=== PATIENT | male | born 1985 | race Caucasian/White ===

== ENCOUNTER 2017-09-07 15:56 | Emergency (ER) ==
[2017-09-07 16:17] VITALS: TEMP 98.1
--- NOTE | 2017-09-07 16:34 | ED.PDOC ---
History of Present Illness - General Chief Complaint: Skin/Abrasion/Tear Stated Complaint: Pruritic rash Time Seen by Provider: 09/07/17 16:31 Source: patient Exam Limitations: no limitations - History of Present Illness Initial Comments: the patient is a 31-year-old male presenting to the emergency room secondary to folliculitis on bilateral thighs. This is been present for about a week. He has not had this problem previously. No evidence of any large abscess. No evidence of any sepsis. There are only a few other areas of folliculitis on his body that are fairly isolated. Timing/Duration: 1 week Severity: mild Improving Factors: nothing Worsening Factors: nothing Allergies/Adverse Reactions: Allergies NO KNOWN ALLERGY Allergy (Verified 09/07/17 16:20) Home Medications: Ambulatory Orders Brexpiprazole [Rexulti] 3 mg PO BEDTIME 09/07/17 Gemfibrozil 600 mg PO BID 09/07/17 Sulfa/Trimeth 800/160 (Ds) Tab [Bactrim DS Tab] 1 ea PO BID #10 tab 09/07/17 amLODIPine BESYLATE [Norvasc] 5 mg PO BEDTIME 09/07/17 traZODone HCL [Desyrel] 100 mg PO BEDTIME 09/07/17 Review of Systems - Review of Systems Constitutional: States: no symptoms reported EENTM: States: no symptoms reported Respiratory: States: no symptoms reported Cardiology: States: no symptoms reported Gastrointestinal/Abdominal: States: no symptoms reported Genitourinary: States: no symptoms reported Musculoskeletal: States: no symptoms reported Skin: States: see HPI Neurological: States: no symptoms reported Endocrine: States: no symptoms reported All other Systems: No Change from Baseline Past Medical History (General) - Patient Medical History Hx Stroke: No Hx Congestive Heart Failure: No Hx Hypertension: Yes Hx Diabetes: No Surgical History: no surgical history - Vaccination History Hx Influenza Vaccination: No Hx Pneumococcal Vaccination: No - Social History Hx Tobacco Use: No Family Medical History - Family History Father Family History: Unknown Living Status: Unknown Physical Exam - Physical Exam General Appearance: Alert, Comfortable, No apparent distress Eye Exam: bilateral normal Ears, Nose, Throat: hearing grossly normal, normal ENT inspection, normal pharynx Neck: full range of motion, supple Respiratory: lungs clear, normal breath sounds, no respiratory distress, no accessory muscle use Cardiovascular/Chest: normal peripheral pulses, no edema Peripheral Pulses: radial,right: 2+, radial,left: 2+, dorsalis pedis,right: 2+, dorsalis pedis,left: 2+ Gastrointestinal/Abdominal: non tender Rectal Exam: deferred Back Exam: no CVA tenderness, no vertebral tenderness Extremity: non-tender, normal inspection, no pedal edema, normal capillary refill Neurologic: applications scientist II-XII nml as tested, alert, normal mood/affect, oriented x 3 Skin Exam: normal color - folliculitis as per history of present illness Comments: Vital Signs - 24 hr 09/07/17 16:16 Temperature 98.1 F Pulse Rate [ 95 H Right Radial] Respiratory 20 Rate Blood Pressure 123/94 [Right Arm] O2 Sat by Pulse 98 Oximetry Progress - Progress Progress: 09/07/17 16:33 the patient's 31-year-old male presenting with folliculitis on his anterior thighs. No evidence of any deep tissue abscess. He needs to wash several times daily with an antibacterial soap such as Dial. He'll be placed on Bactrim twice a day for 5 days. ER warnings were given for any worsening. He should follow-up with his primary care doctor if this is failing to resolve. Departure - Departure Clinical Impression: Folliculitis Disposition: Discharge to Home or Self Care Condition: Fair Departure Forms: ED Discharge - Pt. Copy, Patient Portal Self Enrollment Instructions: DI for Folliculitis Diet: regular diet Activity: increase activity as tolerated Prescriptions: Sulfa/Trimeth 800/160 (Ds) Tab [Bactrim DS Tab] 1 ea PO BID #10 tab Home Medications: Ambulatory Orders Brexpiprazole [Rexulti] 3 mg PO BEDTIME 09/07/17 Gemfibrozil 600 mg PO BID 09/07/17 Sulfa/Trimeth 800/160 (Ds) Tab [Bactrim DS Tab] 1 ea PO BID #10 tab 09/07/17 amLODIPine BESYLATE [Norvasc] 5 mg PO BEDTIME 09/07/17 traZODone HCL [Desyrel] 100 mg PO BEDTIME 09/07/17 Additional Instructions: the patient's 31-year-old male presenting with folliculitis on his anterior thighs. No evidence of any deep tissue abscess. He needs to wash several times daily with an antibacterial soap such as Dial. He'll be placed on Bactrim twice a day for 5 days. ER warnings were given for any worsening. He should follow-up with his primary care doctor if this is failing to resolve. Cholesterol medication should be held while on this medication.
[2017-09-07 17:00] VITALS: BP 124/90; O2SAT 94
== END 2017-09-07 16:45 | disposition home or self-care (01) ==
LOC: ER 15:56
DX: L73.9 Follicular disorder, unspecified (principal); I10 Essential (primary) hypertension

== ENCOUNTER 2017-09-17 18:20 | Emergency (ER) | payer SELFPAY ==
[2017-09-17] MEDS ORDERED: SODIUM CHLORIDE 0.9% 1000ML 1,000 ML IVS ONE (18:47)
[2017-09-17] MEDS ORDERED: ONDANSETRON ODT 8 MG TAB SL ONE (18:47)
[2017-09-17] MEDS ORDERED: ALUM & MAG HYDROX-SIMETHICONE 30 ML, LIDOCAINE VISCOUS 2% 15 ML PO ONE ×2 (18:48)
[2017-09-17] MEDS ORDERED: LIDOCAINE HCL 2% (MOUTH-THROAT) 15 ML UD ONE (19:09)
[2017-09-17] MEDS ORDERED: ALUM & MAG HYDROX-SIMETHICONE 30 ML UD ONE (19:09)
[2017-09-17] MEDS ORDERED: CIPROFLOXACIN 500 MG TAB PO ONE (19:51)
[2017-09-17] MEDS ORDERED: KETOROLAC TROMETHAMINE INJ 30 MG/ML VIAL IM ONE (19:51)
[2017-09-17] MEDS ORDERED: traMADol HCL 50 MG TAB PO ONE (19:51)
--- NOTE | 2017-09-17 19:58 | RAD ---
EXAM DESCRIPTION: Abdomen Series CLINICAL HISTORY: 31 years Male ,ruq pain, hx gallstones COMPARISON: None. TECHNIQUE: Frontal view chest x-ray and two views of the abdomen. FINDINGS: The cardiomediastinal silhouette appears unremarkable. No consolidating infiltrates or pleural effusions. Bilateral atelectasis in the lung bases. Nonspecific bowel gas pattern without obstruction. Psoas margins are well-defined. Moderate fecal material overlies the sacrum. No free air is identified beneath the hemidiaphragms. No dilated loops of bowel to suggest obstruction. IMPRESSION: No acute plain film abnormality is identified. Electronically signed by: Michelle Euceda MD 09/17/2017 7:56 PM CDT
--- NOTE | 2017-09-17 21:32 | ED.PDOC ---
History of Present Illness - General Chief Complaint: Abdominal Pain Stated Complaint: abdominal pain Time Seen by Provider: 09/17/17 18:47 Source: patient Exam Limitations: no limitations - History of Present Illness Initial Comments: the patient's 31-year-old male presenting to the emergency room secondary to some right upper quadrant discomfort. No nausea or vomiting. No fevers. No diarrhea. He is well-hydrated. Discomfort is mild to moderate and has been present only for 2-3 hours. The patient does have a history of gallstones and has had some inflammation in the form of biliary colic from them in the past. He was advised to get his gallbladder out but has not done so. He does take gemfibrozil for hyperlipidemia.his last flareup was around 2 months ago and he had a CT scan done at that time at an outside [facility]. Timing/Duration: 1-3 hours Severity: mild Improving Factors: nothing Worsening Factors: nothing Associated Symptoms: denies symptoms Allergies/Adverse Reactions: Allergies NO KNOWN ALLERGY Allergy (Verified 09/17/17 18:35) Home Medications: Ambulatory Orders Brexpiprazole [Rexulti] 3 mg PO BEDTIME 09/07/17 Gemfibrozil 600 mg PO BID 09/07/17 Sulfa/Trimeth 800/160 (Ds) Tab [Bactrim DS Tab] 1 ea PO BID #10 tab 09/07/17 amLODIPine BESYLATE [Norvasc] 5 mg PO BEDTIME 09/07/17 traZODone HCL [Desyrel] 100 mg PO BEDTIME 09/07/17 Ciprofloxacin [Cipro] 500 mg PO BID #14 tab 09/17/17 Tramadol HCl [Ultram] 50 mg PO Q6HR PRN #30 tab 09/17/17 Review of Systems - Review of Systems Constitutional: States: no symptoms reported EENTM: States: no symptoms reported Respiratory: States: no symptoms reported Cardiology: States: no symptoms reported Gastrointestinal/Abdominal: States: see HPI Genitourinary: States: no symptoms reported Musculoskeletal: States: no symptoms reported Skin: States: no symptoms reported Neurological: States: no symptoms reported Endocrine: States: no symptoms reported All other Systems: No Change from Baseline Past Medical History (General) - Patient Medical History Hx Stroke: No Hx Congestive Heart Failure: No Hx Hypertension: Yes Hx Diabetes: No Surgical History: no surgical history - Vaccination History Hx Influenza Vaccination: No Hx Pneumococcal Vaccination: No - Social History Hx Tobacco Use: No Hx Alcohol Use: No Hx Substance Use: No Family Medical History - Family History Father Family History: Unknown Living Status: Unknown Physical Exam - Physical Exam General Appearance: Alert, Comfortable, No apparent distress Eye Exam: bilateral normal Ears, Nose, Throat: hearing grossly normal, normal ENT inspection, normal pharynx Neck: full range of motion, supple Respiratory: chest non-tender, lungs clear, normal breath sounds, no respiratory distress, no accessory muscle use Cardiovascular/Chest: normal peripheral pulses, regular rate, rhythm, no edema Peripheral Pulses: radial,right: 2+, radial,left: 2+, dorsalis pedis,right: 2+, dorsalis pedis,left: 2+ Gastrointestinal/Abdominal: soft, other - ild right upper quadrant discomfort palpation. No rebound or peritoneal signs. No palpable mass. Rectal Exam: deferred Back Exam: no CVA tenderness, no vertebral tenderness Extremity: non-tender, normal inspection, no pedal edema, no calf tenderness, normal capillary refill Neurologic: beam dyer II-XII nml as tested, no motor/sensory deficits, alert, normal mood/affect, oriented x 3 Skin Exam: normal color Comments: Vital Signs - 24 hr 09/17/17 09/17/17 09/17/17 18:28 19:29 20:27 Temperature 98.5 F Pulse Rate [ 96 H 78 72 pulse ox] Respiratory 20 18 16 Rate Blood Pressure 107/66 [Left Arm] Blood Pressure 120/71 118/73 [Right Arm] O2 Sat by Pulse 97 97 98 Oximetry 09/17/17 21:12 Temperature Pulse Rate [ 70 pulse ox] Respiratory 16 Rate Blood Pressure [Left Arm] Blood Pressure 113/78 [Right Arm] O2 Sat by Pulse 99 Oximetry Progress - Progress Progress: 09/17/17 21:32 the patient is a 31-year-old male presented to emergency room with right upper quadrant pain that is again consistent with biliary colic. He has apparently had a confirmation of bile sludge and stones on a CT scan from an outside hospital a couple of months ago. He was given IV fluids and some discomfort medications. Laboratory work is reassuring. I do not believe that it is worth the radiation exposure to repeat CT scan on the patient at this time. He does actually have a very small urinary tract infection and will be placed on ciprofloxacin for 7 days. This is largely asymptomatic. He needs to find and obtain a primary care doctor and plan on getting his gallbladder out in the near future. In the meantime he needs to be kept well hydrated. He should additionally discontinued his gemfibrozil until he gets his gallbladder out as this is likely only making his symptoms worse. ER warnings were given. The patient will be written for tramadol for as needed use. - Results/Orders Results/Orders: Laboratory Tests 09/17/17 09/17/17 18:59 19:03 WBC 5.4 RBC 4.56 L Hgb 12.8 L Hct 38.2 L MCV 83.7 MCH 28.0 MCHC 33.5 RDW 14.1 Plt Count 240 MPV 8.5 Absolute Neuts (auto) 3.20 Absolute Lymphs (auto) 1.40 Absolute Monos (auto) 0.50 Absolute Eos (auto) 0.30 Absolute Basos (auto) 0.00 Neutrophils % 59.0 Lymphocytes % 26.3 Monocytes % 8.6 Eosinophils % 5.2 H Basophils % 0.9 PT 12.4 INR 1.070 PTT (SP) 30.7 Sodium 140 Potassium 3.6 Chloride 107 Carbon Dioxide 27 Anion Gap 9.6 L BUN 14 Creatinine 1.06 BUN/Creatinine Ratio 13.2 Random Glucose 118 H Serum Osmolality 281.0 Calcium 9.2 Magnesium 1.9 Total Bilirubin 0.7 AST 29 ALT 53 Alkaline Phosphatase 50 Creatine Kinase 149 CK-MB (CK-2) 1.7 CK-MB (CK-2) % Not Reportable Troponin I < 0.02 Serum Total Protein 7.0 Albumin 4.1 Globulin 2.9 Albumin/Globulin Ratio 1.4 Amylase 26 L Lipase 22 Urine Color Yellow Urine Appearance Clear Urine pH 6.0 Ur Specific [place] >= 1.030 Urine Protein Negative Urine Glucose (UA) Negative Urine Ketones Negative Urine Blood Negative Urine Nitrite Negative Urine Bilirubin Negative Urine Urobilinogen 0.2 Ur Leukocyte Esterase Negative Urine RBC 0-1 Urine WBC 5-10 H Ur Epithelial Cells 1-3 Urine Bacteria 0 abdominal series shows no acute pathology. Departure - Departure Clinical Impression: Biliary colic symptom Disposition: Discharge to Home or Self Care Condition: Fair Departure Forms: ED Discharge - Pt. Copy, Patient Portal Self Enrollment Diet: other - low-fat diet Activity: increase activity as tolerated Prescriptions: Tramadol HCl [Ultram] 50 mg PO Q6HR PRN #30 tab PRN Reason: Moderate To Severe Pain Ciprofloxacin [Cipro] 500 mg PO BID #14 tab Home Medications: Ambulatory Orders Brexpiprazole [Rexulti] 3 mg PO BEDTIME 09/07/17 Gemfibrozil 600 mg PO BID 09/07/17 Sulfa/Trimeth 800/160 (Ds) Tab [Bactrim DS Tab] 1 ea PO BID #10 tab 09/07/17 amLODIPine BESYLATE [Norvasc] 5 mg PO BEDTIME 09/07/17 traZODone HCL [Desyrel] 100 mg PO BEDTIME 09/07/17 Ciprofloxacin [Cipro] 500 mg PO BID #14 tab 09/17/17 Tramadol HCl [Ultram] 50 mg PO Q6HR PRN #30 tab 09/17/17 Additional Instructions: the patient is a 31-year-old male presented to emergency room with right upper quadrant pain that is again consistent with biliary colic. He has apparently had a confirmation of bile sludge and stones on a CT scan from an outside hospital a couple of months ago. He was given IV fluids and some discomfort medications. Laboratory work is reassuring. I do not believe that it is worth the radiation exposure to repeat CT scan on the patient at this time. He does actually have a very small urinary tract infection and will be placed on ciprofloxacin for 7 days. This is largely asymptomatic. He needs to find and obtain a primary care doctor and plan on getting his gallbladder out in the near future. In the meantime he needs to be kept well hydrated. He should additionally discontinued his gemfibrozil until he gets his gallbladder out as this is likely only making his symptoms worse. ER warnings were given. The patient will be written for tramadol for as needed use.
[2017-09-17 21:47] VITALS: TEMP 97.9; O2SAT 97
[2017-09-17 22:00] VITALS: BP 107/66
== END 2017-09-17 21:50 | disposition home or self-care (01) ==
LOC: ER 18:20
DX: K80.20 Calculus of gallbladder without cholecystitis without obstruction (principal); N39.0 Urinary tract infection, site not specified; I10 Essential (primary) hypertension; E78.5 Hyperlipidemia, unspecified
CPT/HCPCS: 74019; 80048; 80053; 81001; 82150; 82550; 82553; 83690; 84484; 85025; 85610; 85730; J1885; J7030

== ENCOUNTER 2018-05-05 09:22 | Emergency (ER) | payer SELFPAY ==
[2018-05-05 09:55] VITALS: BP 130/80; TEMP 97.1; O2SAT 100
[2018-05-05] MEDS ORDERED: cefTRIAXone SODIUM 1 GM VIAL IM ONE (10:07)
[2018-05-05] MEDS ORDERED: LIDOCAINE 1% 10 ML VIAL INJ ONE (10:09)
--- NOTE | 2018-05-05 10:10 | ED.PDOC ---
History of Present Illness - General Chief Complaint: Post Op Problems Stated Complaint: incisional drainage Time Seen by Provider: 05/05/18 10:07 Source: patient Exam Limitations: no limitations - History of Present Illness Initial Comments: patient comes in today for possible postsurgical complication. Patient was living in [place] when he started to have right upper quadrant abdominal pain. He was transferred transferred emergently to [place] and underwent open cholecystectomy secondary to rupture per patient of the bile duct. Patient was in the hospital for several weeks and had his zeeshan removed on the . Patient was discharged a couple of days ago and then moved here. Patient states last night he noticed that he was having some clear to orange colored discharge from the middle of the wound. It was minimal and mostly on his bandage that had not been there previously. He does not have any pain, fever, chills nausea or vomiting but notes that at that area it was a little hot to him and he was concerned he was starting to become infected. Patient has a past medical history of hyperlipidemia, hypertension, and obstructive sleep apnea. He has no known drug allergies. He was told that he suffers from some pancreatitis from complications from his gallstones and he has an appointment in [place] with a specialist. Timing/Duration: 24 hours Severity: mild Improving Factors: nothing Worsening Factors: nothing Associated Symptoms: denies symptoms Allergies/Adverse Reactions: Allergies NO KNOWN ALLERGY Allergy (Verified 09/17/17 18:35) Home Medications: Ambulatory Orders Cephalexin Monohydrate [Keflex] 500 mg PO TID #30 cap 05/05/18 Lamotrigine [Lamictal] 25 mg PO DAILY 05/05/18 Review of Systems - Review of Systems Constitutional: States: no symptoms reported. Denies: chills, diaphoresis, fever EENTM: States: no symptoms reported. Denies: eye pain Respiratory: States: no symptoms reported. Denies: cough, short of breath Cardiology: States: no symptoms reported. Denies: chest pain, palpitations Gastrointestinal/Abdominal: States: no symptoms reported. Denies: abdominal pain, nausea, vomiting Genitourinary: States: no symptoms reported Skin: States: see HPI Past Medical History (General) - Patient Medical History Hx Stroke: No Hx Congestive Heart Failure: No Hx Hypertension: Yes Hx Diabetes: No Surgical History: cholecystectomy - Vaccination History Hx Influenza Vaccination: No Hx Pneumococcal Vaccination: No - Social History Hx Tobacco Use: No Hx Alcohol Use: No Hx Substance Use: No Family Medical History - Family History Father Family History: Unknown Living Status: Unknown Physical Exam - Physical Exam General Appearance: Alert, No apparent distress Eye Exam: bilateral normal Neck: non-tender, full range of motion, supple Respiratory: chest non-tender, lungs clear, normal breath sounds Cardiovascular/Chest: normal peripheral pulses, regular rate, rhythm, no murmur Gastrointestinal/Abdominal: normal bowel sounds, non tender, soft, distended, other - healing scar in the RUQ with 5 cm area in the center of thinned scar tissue with mild erythema and calor with no fluctulance or discharge Progress - Results/Orders Results/Orders: Laboratory Results WBC 9.2 K/mm3 (4.8-10.8) 05/05/18 10:18 RBC 3.64 M/mm3 (4.70-6.10) L 05/05/18 10:18 Hgb 9.8 gm/dL (14.0-18.0) L 05/05/18 10:18 Hct 30.7 % (42.0-52.0) L 05/05/18 10:18 MCV 84.3 fl (80.0-94.0) 05/05/18 10:18 MCH 26.9 pg (27.0-31.0) L 05/05/18 10:18 MCHC 31.8 g/dL (33.0-37.0) L 05/05/18 10:18 RDW 14.5 % (11.5-14.5) 05/05/18 10:18 Plt Count 293 K/mm3 (130-400) 05/05/18 10:18 MPV 8.5 fl (7.40-10.4) 05/05/18 10:18 Absolute Neuts (auto) 7.00 K/uL (1.8-6.8) H 05/05/18 10:18 Absolute Lymphs (auto) 1.20 K/uL (1.0-3.4) 05/05/18 10:18 Absolute Monos (auto) 0.90 K/uL (0.2-0.8) H 05/05/18 10:18 Absolute Eos (auto) 0.10 K/uL (0.0-0.4) 05/05/18 10:18 Absolute Basos (auto) 0.00 K/uL (0.0-0.1) 05/05/18 10:18 Neutrophils % 75.8 % (42.0-78.0) 05/05/18 10:18 Lymphocytes % 13.4 % (20.0-50.0) L 05/05/18 10:18 Monocytes % 9.8 % (2.0-9.0) H 05/05/18 10:18 Eosinophils % 0.6 % (1.0-5.0) L 05/05/18 10:18 Basophils % 0.4 % (0.0-2.0) 05/05/18 10:18 Sodium 136 mmol/L (135-145) 05/05/18 10:18 Potassium 3.6 mmol/L (3.6-5.0) 05/05/18 10:18 Chloride 102 mmol/L (101-111) 05/05/18 10:18 Carbon Dioxide 23 mmol/L (21-31) 05/05/18 10:18 Anion Gap 14.6 (12-18) 05/05/18 10:18 BUN 18 mg/dL (7-18) 05/05/18 10:18 Creatinine 0.57 mg/dL (0.6-1.3) L 05/05/18 10:18 BUN/Creatinine Ratio 31.6 (10-20) H 05/05/18 10:18 Random Glucose 112 mg/dL (70-105) H 05/05/18 10:18 Serum Osmolality 274.6 mOsm/L (275-295) L 05/05/18 10:18 Calcium 8.6 mg/dL (8.4-10.2) 05/05/18 10:18 Total Bilirubin 0.4 mg/dL (0.2-1.0) 05/05/18 10:18 AST 36 IU/L (10-42) 05/05/18 10:18 ALT 53 IU/L (10-60) 05/05/18 10:18 Alkaline Phosphatase 101 IU/L (42-121) 05/05/18 10:18 Serum Total Protein 7.2 gm/dL (6.4-8.2) 05/05/18 10:18 Albumin 2.5 g/dl (3.2-5.5) L 05/05/18 10:18 Globulin 4.7 gm/dL (2.3-3.5) H 05/05/18 10:18 Albumin/Globulin Ratio 0.5 (1.1-1.9) L 05/05/18 10:18 Departure - Departure Clinical Impression: Postoperative wound infection Disposition: Discharge to Home or Self Care Condition: Good Departure Forms: ED Discharge - Pt. Copy, Patient Portal Self Enrollment Prescriptions: Cephalexin Monohydrate [Keflex] 500 mg PO TID #30 cap Home Medications: Ambulatory Orders Cephalexin Monohydrate [Keflex] 500 mg PO TID #30 cap 05/05/18 Lamotrigine [Lamictal] 25 mg PO DAILY 05/05/18 Additional Instructions: follow up on Tuesday with his PCP or in the clinic. Return to ER for pain at site, increased redness, temp>100.5
== END 2018-05-05 11:03 | disposition home or self-care (01) ==
LOC: ER 09:22
DX: T81.41XA Infection following a procedure, superficial incisional surgical site, initial encounter (principal); I10 Essential (primary) hypertension; Y83.8 Other surgical procedures as the cause of abnormal reaction of the patient, or of later complication, without mention of misadventure at the time of the procedure; Z90.49 Acquired absence of other specified parts of digestive tract
CPT/HCPCS: 36415; 80053; 85025; J0696